=== PATIENT | male | born 1960 | race Caucasian/White ===

== ENCOUNTER 2023-03-19 20:13 | Observation (INO) | payer OTHER, SELFPAY ==
[2023-03-19 17:43] VITALS: BP 156/85
--- NOTE | 2023-03-19 18:14 | ED.GENMED ---
History of Present Illness
General
Chief Complaint: Throat Problem
Source: patient and spouse
Exam Limitations: none
Time Seen by Provider: 03/19/23 17:55
Travel History
Have you had any contact with someone who has COVID-19?: No
Do you have any symptoms of coronavirus? Fever > 100 degrees, chills, cough, shortness of breath, sore throat, loss of taste or smell, muscle aches, or headache?: Yes
Symptoms:: sore throat
History of Present Illness
History of Present Illness:
62-year-old male 4 to 5 days of progressive right-sided throat pain. Severe pain with swallowing. Has been on azithromycin for 3 days. Also on steroids. 50 mg/day. No fever. No shortness of breath or chest pain. Feels like his tongue is
mildly swollen today.
Past History
Past History
ED Past Medical History: HTN and Hypercholesterolemia
ED Past Surgical History: Other (Bilateral inguinal hernia)
Review of Systems
Review of Systems
All Other Systems: Not applicable
Constitutional: Denies fever
Respiratory: Reports no symptoms
Cardiac: Reports no symptoms
Phy Exam
Physical Exam
Physical Exam:
GENERAL: Alert and oriented in no apparent distress
EYE: Orbits normal.
NECK: Supple, mild submandibular adenopathy. No significant neck swelling.
ENT: Pharynx with significant uvular deviation to the left with erythema and swelling of the soft palate. No drooling or stridor. No true trismus. Questionable slight tongue swelling
CARDIAC: Regular rate and rhythm without any obvious murmurs.
LUNGS: Clear breath sounds,normal
ABDOMEN: Soft, without focal tenderness or distention
NEUROLOGICAL: Alert and oriented , grossly non-focal
SKIN: Warm and dry, no rash or lesion, no discoloration, skin intact.
MUSCULOSKELETAL: No edema,no deformity.Good color
PSYCH: Normal and appropriate interaction.
Course
Orders/Labs/Results
Orders:
Orders
03/19/23 Dinner
Clear Liquid
At Your Request: Full Participation
03/19/23 18:06
IV Insert/Care/Rem.- Treatment PRN
0.9% Sodium Chloride 1000 ml [Nss] 1,000 ml IV BOLUS
03/19/23 18:07
Dexamethasone Sod Phosphate [Decadron] 8 mg IV NOW STA
03/19/23 18:11
Famotidine [Pepcid] 20 mg IV NOW STA
03/19/23 18:20
Basic Metabolic Panel Urgent
Complete Blood Count/With Diff Urgent
03/19/23 18:23
Clindamycin 600 mg/50 ml [Cleocin] 600 mg in 50 ml IV NOW
03/19/23 19:41
Admit Patient As Directed
Co-Sign Provider:
Level of Care: Observation services
Assign to:: Medical/Surgical
Physician / Group: Clemente
Diagnosis: Peritonsillar Abscess
Expected length of stay greater than two midnights?: No
ELOS- Estimated Length of Stay in days: 1
Reason for Overnight Stay: Standard of Care
Code Status As Directed
Resuscitation Status: Full Code
VTE Contraindication Routine
VTE Mechanical Device Contraindication: Low Risk- LOS < 2 days
Pharmocologic Contraindication: Low Risk- LOS < 2 days
Risk assessment completed and pt is low risk: Yes
Acetaminophen 1000MG/100Ml [Ofirmev] 1,000 mg in 100 ml IV Q6HPRN
Acetaminophen IV Indication:: No NC & No Enteral Access
Acetaminophen [Tylenol] 650 mg PO Q4HPRN PRN
Normosol (Mult Electrolytes) [Normosol-R] 1,000 ml IV 80 mls/hr
Ondansetron Injectable [Zofran] 4 mg IV Q6HPRN PRN
Activity As Directed
Activity Level: As Tolerated
Vital Signs As Directed
Frequency: Per unit guidelines
03/19/23 19:47
Wound/Abscess/Other Culture Routine
SALVADOR Source: Abscess
Specimen Description:
Date Specimen was Collected: 03/19/23
Time Specimen was Collected: 19:52
Comment: Right Peritonsillar Abscess
HYDROmorphone [Dilaudid] 0.5 mg IV Q3HPRN PRN
03/19/23 20:00
Clindamycin 600 mg/50 ml [Cleocin] 600 mg in 50 ml IV Q6H
03/20/23 06:00
Complete Blood Count/No Diff IN AM
03/20/23 08:00
Dexamethasone Sod Phosphate [Decadron] 6 mg 0.9% Sodium Chloride 50 ml [Nss] 50 ml IV ONCE
NIFEdipine EXTENDED RELEASE [Procardia Xl (Extended Release)] 30 mg PO DAILY
Tamsulosin [Flomax] 0.4 mg PO DAILY
03/20/23 18:00
Atorvastatin [Lipitor] 10 mg PO QPM
Abnormal Lab Results
03/19/23
18:20
WBC 12.4 H 10^3/uL
(4.8-10.8)
RBC 4.62 L 10^6/uL
(4.70-6.10)
MCH 32.3 H pg
(27.0-31.0)
Absolute Neuts (auto) 10.8 H 10^3/uL
(1.4-6.5)
Absolute Lymphs (auto) 0.8 L 10^3/uL
(1.2-3.4)
Absolute Monos (auto) 0.7 H 10^3/uL
(0.1-0.6)
Neutrophils % 87.4 H %
(42.2-75.2)
Lymphocytes % 6.4 L %
(20.5-51.1)
BUN 28 H mg/dl
(9-20)
Glucose 122 H mg/dl
(70-99)
03/19/23 18:20
03/19/23 18:20
Vital Signs
Initial and Last Documented VS:
Initial Vital Signs
Temp Pulse Resp BP Pulse Ox
98.0 F 84 18 156/85 97
03/19/23 17:43 03/19/23 17:43 03/19/23 17:43 03/19/23 17:43 03/19/23 17:43
Last Documented Vital Signs
Temp Pulse Resp BP Pulse Ox
98.0 F 84 18 156/85 97
03/19/23 17:43 03/19/23 17:43 03/19/23 17:43 03/19/23 17:43 03/19/23 17:43
MDM/Problems Addressed
Differential Diagnosis Includes:
Clinically this appears to be a significant peritonsillar abscess. ENT contacted. Hold on CT scan. They will evaluate. Fluids antibiotics and steroids ordered.
*Pulse Oximetry
Patient hypoxic: no
*Critical Care Note
Total Time (30-74mins, 75-104mins- exclusive of procedures): Not Applicable
Update Note
Update Note:
Patient seen by ENT who drained approximately 3 cc of pus. They will admit for IV antibiotics and fluids. Asked again whether CT scan was necessary and they felt it was not necessary at this time.
ED Attending Note
-
Portions of this chart may have been created with voice recognition software.� Occasional wrong word or��sound alike� substitutions may have occurred due to the inherent limitations of voice recognition software.
Discharge Plan
Departure
Patient Disposition: Admit
Date of Disposition: 03/19/23
Time of Disposition: 19:33
Presentation/result/management discussed w/ accepting MD/DO: ENT
Discharge Problem:
Peritonsillar abscess
Prescriptions:
No Action
nifedipine 30 mg Tablet Extended Release 24hr
30 mg PO HS
atorvastatin 10 mg Tablet
10 mg PO HS
tamsulosin 0.4 mg Capsule
0.4 mg PO HS
prednisone 50 mg Tablet
50 mg PO DAILY
ibuprofen 200 mg Tablet
200 mg PO Q6H PRN (Reason: mild pain/fever)
azithromycin 500 mg Tablet
500 mg PO DAILY
Interventions
Interventions:
*Risk Screen - Suicide Last Done: 03/19/23 17:43
*General Assessment Last Done: 03/19/23 17:43
*Neglect/Abuse Screening Last Done: 03/19/23 17:43
ED- Fall Risk Assessment Last Done: 03/19/23 18:23
*ED COVID-19 Vaccine History Last Done: 03/19/23 18:12
ED-EENT Assessment Last Done: 03/19/23 19:27
ED- Pulmonary Assessment Last Done: 03/19/23 18:12
[2023-03-19] MEDS: PEPCID 20 MG IV (18:25)
[2023-03-19] MEDS: DECADRON 8 MG IV (18:25)
[2023-03-19] MEDS: NSS 1000 IV (18:25)
[2023-03-19 18:28] LABS: % Basophils 0.2 % (0-2); % Eosinophils 0.2 % (0-6); % Immature Granulocytes 0.3 % (0-0.5); % Lymphocytes 6.4 % (20.5-51.1); % Monocytes 5.5 % (1.7-9.3); % Neutrophils 87.4 % (42.2-75.2); Absolute Lymphocytes 0.8 10^3/uL (1.2-3.4); Absolute Monocytes 0.7 10^3/uL (0.1-0.6); Absolute Neutrophils 10.8 10^3/uL (1.4-6.5); Hematocrit 41.9 % (39.0-52.0); Hemoglobin 14.9 g/dL (13.0-18.0); Mean Corp Hgb Conc. 35.6 g/dL (33.0-37.0); Mean Corpuscular Hgb 32.3 pg (27.0-31.0); Mean Corpuscular Volume 90.7 fL (80.0-94.0); Mean Platelet Volume 8.8 fL (7.4-10.4); Nucleated Red Blood Cells % 0 % (-); Platelet Count 308 10^3/uL (130-400); Red Blood Cell Count 4.62 10^6/uL (4.70-6.10); Red Cell Dist. Width 12.5 % (11.5-14.5); White Blood Cell Count 12.4 10^3/uL (4.8-10.8)
[2023-03-19 18:40] LABS: Blood Urea Nitrogen 28 mg/dl (9-20); Calcium 9.8 mg/dl (8.4-10.2); Carbon Dioxide 23 mmol/L (22-30); Chloride 103 mmol/L (98-107); Estimated Creatinine Clearance 120 ml/min; Glucose 122 mg/dl (70-99); Potassium 4.1 mmol/L (3.5-5.1); Sodium 142 mmol/L (135-145); eGFR > 60.00
[2023-03-19] MEDS: CLEOCIN 50 IV (18:45)
--- NOTE | 2023-03-19 19:34 | CON.MD ---
Consultation - Medical
-
dictated.
R peritonsillar abscess, aspirated but still with odynophagia. will admit, IVF, clinda, steroids, analgesics.
[2023-03-19 20:21] VITALS: BP 138/85
[2023-03-19 21:00] VITALS: BMI 29.4
[2023-03-19 21:01] VITALS: BP 154/89
[2023-03-19] MEDS: NORMOSOL-R 1000 IV (21:12)
--- NOTE | 2023-03-19 21:30 | PTCARENOTE ---
Pt arrived to 3W from ED via wheelchair. Pt able to ambulate safely into room. Pt AOx3 and VSS. Pt oriented to unit and call boykin within reach. Will continue to monitor.
[2023-03-19 23:20] VITALS: BP 131/76
[2023-03-20] MEDS: CLEOCIN 50 IV ×3 (00:36→12:08)
[2023-03-20] MEDS: TYLENOL 650 MG PO ×2 (02:47→11:53)
[2023-03-20 05:49] LABS: Hematocrit 38.7 % (39.0-52.0); Hemoglobin 13.7 g/dL (13.0-18.0); Mean Corp Hgb Conc. 35.4 g/dL (33.0-37.0); Mean Corpuscular Hgb 32.6 pg (27.0-31.0); Mean Corpuscular Volume 92.1 fL (80.0-94.0); Platelet Count 301 10^3/uL (130-400); Red Cell Dist. Width 12.4 % (11.5-14.5); White Blood Cell Count 9.5 10^3/uL (4.8-10.8)
[2023-03-20 07:00] VITALS: BP 145/74
[2023-03-20] MEDS: DECADRON 51.5 MG IV (07:30)
[2023-03-20] MEDS: PROCARDIA XL (EXTENDED RELEASE) 30 MG PO (07:31)
[2023-03-20] MEDS: FLOMAX 0.400000000000000022 MG PO (07:31)
--- NOTE | 2023-03-20 09:46 | PTCARENOTE ---
Addendum entered by Soren Hurtado RN 03/20/23 11:41:
Disregard this note for this pt, it was transcribed in error to wrong chart. It was meant for Wilmer-Shruthi Moore.
Original Note:
Pt BP 80/42 manually, notified Dr Casper, 500ml NSS bolus ordered. S/P bolus, BP now 95/46. Pt asymptomatic, offers no complaints
--- NOTE | 2023-03-20 11:41 | W.PN.ENT ---
Today's Communication
-
dc to home
Impression / Plan
-
Acute tonsillitis, R [employer], much better after aspiration and abx
will dc to home
d/w Pharmacist, no contraindication to cephalosporins. cefdinir + flagyl recommended.
short steroid taper
gargle frequently
pt will call or return to ER if any sx worsen or fail to resolve
probiotics
Subjective Data
-
feels dramatically better, much less soreness, able to swallow liquids w/o aspiration, minimal odynophagia, no dyspnea
Objective Data
-
Vital Signs
Temp Pulse Resp BP Pulse Ox
98.0 F 73 18 145/74 97
03/20/23 07:00 03/20/23 07:31 03/20/23 07:00 03/20/23 07:31 03/20/23 07:00
Intake & Output
03/19/23 03/20/23 03/21/23
06:59 06:59 06:59
Intake:
Oral fluids 240 / 240
Other:
Number of approximated MODERATE 3
amounts of urine
Lab Results
03/20/23 05:24
03/19/23 18:20
Calcium 9.8 mg/dl (8.4-10.2) 03/19/23 18:20
Physical Exam
-
no hoarseness, stridor, drool
98.0 97% sat on RA
nose normal
OC/OP no trismus. much less swelling of R soft palate. mild edema of uvula. eschar on R tonsil. no erythema.
neck w/o tenderness or fluctuance, no masses
gm stain many GPCs, mod GNRs
WBC 9.5
[2023-03-20] MEDS: NORMOSOL-R 1000 IV (12:04)
--- NOTE | 2023-03-20 12:09 | CM ---
Met with patient at bedside; initial assessment completed
Pharmacy verified: [facility]
Patient reports he lives alone in a ranch home with basement; 2 steps to enter; 10 steps down to partial basement; home has two bathroom: one with tub/shower the other has a stall shower with grab bar
Patient reports he is independent with ambulation, stairs, and ADLs; drives
Transportation: friend will provide ride home
SNF/Rehab/Home Health utilization history: None
Plan: discharge to home today without services
[2023-03-20] MEDS: FLUZONE QUAD 2023-2024 SYRINGE 0.5 ML IM (12:43)
== END 2023-03-20 14:39 | disposition home or self-care (01) ==
LOC: 3 WEST ACU 20:13
PROVIDERS: ADMITTING PHYSICIAN Otolaryngology; EMERGENCY PHYSICIAN Emergency Medicine; FAMILY PHYSICIAN Hospitalist
DX: J36 Peritonsillar abscess (principal); I10 Essential (primary) hypertension; E78.00 Pure hypercholesterolemia, unspecified; Z23 Encounter for immunization; Z88.0 Allergy status to penicillin
CPT/HCPCS: 80048; 85025; 85027; 87070; 87205; 90686; 96365; 96375; 99285; G0008; G0378